=== PATIENT | female | born 1970 | race Caucasian/White ===

== ENCOUNTER 2019-03-17 11:27 | Outpatient (REF) | payer OTHER, SELFPAY ==
[2019-03-17 22:36] LABS: Calculated LDL 96 mg/dL; Cholesterol 177 mg/dL (50-200); HDL Cholesterol 63 mg/dL (40-60); Triglyceride 91 mg/dL (30-150)
== END 2019-03-17 11:47 ==
LOC: NCHCO 11:27
PROVIDERS: PCP Legal Medicine; Visit Provider Internal Medicine
DX: J45.20 Mild intermittent asthma, uncomplicated (principal); F90.0 Attention-deficit hyperactivity disorder, predominantly inattentive type; F34.1 Dysthymic disorder
CPT/HCPCS: 80061

== ENCOUNTER 2019-04-14 01:37 | Outpatient (CLI) | payer OTHER, SELFPAY ==
--- NOTE | 2019-04-14 08:21 | DI.MAMMO_ITS ---
EXAM: MAMMO SCREENING CLINICAL HISTORY: SCREENING, Z12.39 TECHNIQUE: Mammograms were interpreted according to the usual protocol including computer analysis w [employer] CAD system, tomosynthesis and C-view imaging. COMPARISON: 2012 and 2015 FINDINGS: The breasts are composed of scattered areas of fibroglandular density, breast density category B. No suspicious masses or microcalcifications are seen. There has been no significant change when compared with the prior examinations. IMPRESSION: Category 1, negative mammogram. Yearly screening mammography is recommended. BI-RADS Cat 1 - Negative Breast Density - Category B - Scattered areas of fibroglandular density
== END 2019-04-14 01:57 ==
PROVIDERS: PCP Legal Medicine; Visit Provider Internal Medicine
DX: Z12.31 Encounter for screening mammogram for malignant neoplasm of breast (principal)
CPT/HCPCS: 77063; 77067

== ENCOUNTER 2019-08-03 02:25 | Outpatient (CLI) | payer OTHER, SELFPAY ==
--- NOTE | 2019-08-03 12:30 | DI.US_ITS ---
EXAM: US PELVIS AND TRANSVAGINAL CLINICAL HISTORY: IRREGULAR MENSES N92.6. TECHNIQUE: Ultrasound of the pelvic, both abdominal and transvaginal was performed using standard pr otocol. COMPARISON: No exams were available for comparison FINDINGS: KIDNEYS: Kidneys are symmetric in size. No evidence of renal calculi. No evidence of hydronephrosis. No renal mass or cyst identified. UTERUS: Position: Retroverted Size: 5.7 x 3.6 x 4.9 cm Endometrium: 0.4 cm. Normal for patient's menstrual status. Myometrium: Unremarkable. Cervix: Unremarkable. OVARIES: Right: 1.7 x 1.0 x 1.0 cm Cyst or mass: Small follicular cysts. Left: 2.6 x 1.3 x 0.9 cm Cyst or mass: 2.1 x 1.3 x 1.7 cm cyst. There is a thin septation or an adjacent 2nd cyst noted. Thi s 2nd area measures 0.7 cm in diameter. No solid component or blood flow is seen. DOPPLER: Color: Symmetric and uniform flow to both ovaries. No hyperemia. Duplex: Normal ovarian arterial waveforms visualized. CUL-DE-SAC: Free fluid: None. Note is made of a 2.5 x 2.5 x 3.2 cm well-circumscribed hyperechoic mass in the liver. Sonographical ly, this is suggestive of a hemangioma. IMPRESSION: 1. Normal sonographic appearance of the kidneys. 2. Normal-appearing uterus with endometrial stripe within normal limits. 3. 2.1 x 1.3 x 1.7 cm cyst on the left ovary as described above. A 2nd cyst or thin septation is not ed. Please see the above discussion. 4. 2.5 x 2.5 x 3.2 cm well-circumscribed hyperechoic mass in the liver. This is most suggestive of a hemangioma sonographically. A CT scan of the abdomen with the hemangioma protocol may be obtained f or further evaluation.
== END 2019-08-03 02:45 ==
PROVIDERS: PCP Legal Medicine; Visit Provider Obstetrics & Gynecology
DX: N92.6 Irregular menstruation, unspecified (principal); N85.4 Malposition of uterus; N83.01 Follicular cyst of right ovary; N83.292 Other ovarian cyst, left side; K76.89 Other specified diseases of liver
CPT/HCPCS: 76830; 76856

== ENCOUNTER 2020-05-04 10:51 | Outpatient (CLI) | payer OTHER, SELFPAY ==
--- NOTE | 2020-05-04 08:00 | DI.RAD_ITS ---
EXAM: XR KNEE RT 3V AP,LAT,LISANDRA CLINICAL HISTORY: right knee pain. TECHNIQUE: 2D digital imaging was performed. COMPARISON: No exams were available for comparison FINDINGS: BONES: No acute fracture is present. No bony destructive lesion is seen. JOINTS: The knee is normally aligned. No joint effusion is seen. SOFT TISSUE: Normal. IMPRESSION: Unremarkable radiographs of the right knee. DATA REPOSITORY: RADIATION DOSE DELIVERED:
== END 2020-05-04 11:11 ==
PROVIDERS: PCP Internal Medicine; Referring Provider Internal Medicine; Visit Provider Student in an Organized Health Care Education/Training Program
DX: M25.561 Pain in right knee (principal)
CPT/HCPCS: 73562

== ENCOUNTER 2020-07-06 03:25 | Outpatient (CLI) | payer OTHER, SELFPAY ==
--- NOTE | 2020-07-06 08:00 | DI.US_ITS ---
EXAM: US PELVIS TRANSVAGINAL CLINICAL HISTORY: MENOPAUSAL SYMPTOMS,EVAL ENDOMETRIAL STRIPE. TECHNIQUE: Transabdominal and transvaginal pelvic ultrasound was performed using standard protocol. COMPARISON: US US PELVIS TRANSVAGINAL from 08/03/2019 FINDINGS: KIDNEYS: Kidneys are symmetric in size. No evidence of renal calculi. No evidence of hydronephrosis. No renal mass or cyst identified. UTERUS: Position: Retroverted. Size: 6.3 long by 3.8 AP by 4.7 transverse cm Endometrium: 0.7 cm. Normal for patient's menstrual status. Myometrium: No discrete mass is identified. Cervix: Unremarkable. OVARIES: Right: 2.4 x 1.2 x 1.0 cm Cyst or mass: None. Left: 1.4 x 0.9 x 1.0 cm Cyst or mass: None. DOPPLER: Color: Symmetric and uniform flow to both ovaries. No hyperemia. Duplex: Normal ovarian arterial waveforms visualized. CUL-DE-SAC: Free fluid: None. Other: Note is again made of a 2.7 x 2.5 x 2.2 cm well-circumscribed hyperechoic mass in the liver, s onographically delete suggestive of a hepatic hemangioma. IMPRESSION: 1. Normal sonographic appearance of the kidneys. 2. Normal-appearing uterus with endometrial stripe within normal limits. 3. Unremarkable bilateral ovaries. 4. Stable hyperechoic hepatic lesions suggestive of a hepatic hemangioma. DATA REPOSITORY:
== END 2020-07-06 03:45 ==
PROVIDERS: PCP Internal Medicine; Visit Provider Obstetrics & Gynecology
DX: N95.1 Menopausal and female climacteric states (principal)
CPT/HCPCS: 76830; 76856

== ENCOUNTER 2020-07-18 21:56 | Outpatient (REF) | payer OTHER, SELFPAY ==
[2020-07-18 20:56] LABS: TSH (W/Ref FT4) 1.24 uIU/mL (0.36-3.74)
[2020-07-19 17:49] LABS: Estradiol 13 pg/mL (See Note)
[2020-07-19 18:58] LABS: Prolactin 5.1 ng/mL (See Table)
== END 2020-07-18 21:57 | disposition home or self-care (01) ==
LOC: NCHCN 21:56
PROVIDERS: PCP Internal Medicine; Visit Provider Obstetrics & Gynecology
DX: N91.5 Oligomenorrhea, unspecified (principal)
CPT/HCPCS: 82670; 83001; 84146; 84443

== ENCOUNTER 2020-11-16 11:52 | Outpatient (CLI) | payer OTHER, SELFPAY ==
[2020-11-16 11:55] LABS: Source Nasal/Nares
[2020-11-16 20:57] LABS: COVID-19 PCR Negative (Negative)
== END 2020-11-16 11:53 | disposition home or self-care (01) ==
LOC: LBO 11:52
PROVIDERS: PCP Internal Medicine; Visit Provider Surgery
DX: Z20.822 Contact with and (suspected) exposure to COVID-19 (principal)
CPT/HCPCS: 87635

== ENCOUNTER 2020-12-07 11:31 | Outpatient (CLI) | payer OTHER, SELFPAY ==
[2020-12-08 00:45] LABS: COVID-19 RT-PCR UVMMC Result Negative (Negative)
== END 2020-12-07 11:32 | disposition home or self-care (01) ==
PROVIDERS: Nurse Practitioner Family; PCP Internal Medicine; Visit Provider Surgery
DX: Z20.822 Contact with and (suspected) exposure to COVID-19 (principal)
CPT/HCPCS: U0003

== ENCOUNTER 2021-07-18 12:20 | Outpatient (REF) | payer OTHER, SELFPAY ==
--- NOTE | 2021-07-18 11:00 | PAPFT_PTH ---
PATIENT: Carri Logan LOC: [facility]#:[id number] AGE/SX: 50/F ROOM: RE07/18/[address]: Kenton Cortez : 1970 BED: DIS: 07/18/2021 SPEC #: [id number] RECD: 07/18/21 16:37 STATUS: CASA FERNÁNDEZ #: [id number] LAN: 07/18/21 11:[address]: Kenton Cortez DEPT: [facility] Cytology RECD BY: Kalyn Tabor Tissues: 1 - CX/ENDOCX FOR PAP SMEARS Procedures: PAP THIN PREP/UVM Screening HPV DNA PROBE Comments: [id number]
== END 2021-07-18 12:21 | disposition home or self-care (01) ==
LOC: NCHCN 12:20
PROVIDERS: PCP Internal Medicine; Visit Provider Internal Medicine
DX: Z12.4 Encounter for screening for malignant neoplasm of cervix (principal); Z11.51 Encounter for screening for human papillomavirus (HPV); Z01.419 Encounter for gynecological examination (general) (routine) without abnormal findings
CPT/HCPCS: 88142; 87624

== ENCOUNTER 2021-09-06 02:01 | Outpatient (CLI) | payer OTHER, SELFPAY ==
--- NOTE | 2021-09-06 13:00 | DI.MAMMO_ITS ---
Exam(s) MAMMO SCREENING EXAM: MAMMO SCREENING CLINICAL HISTORY: SCREENING, Z12.39 TECHNIQUE: Bilateral full field digital CC and MLO mammographic images were obtained with 3D tomosyn thesis and utilizing computer aided detection (CAD). COMPARISON: Available for comparison. FINDINGS: Masses/Architectural Distortion: There are stable bilateral well-circumscribed nodules. No suspiciou s masses or areas of architectural distortion are present. Microcalcifications: No suspicious pleomorphic-type are seen. Skin Thickening/Nipple Retraction: None. IMPRESSION: 1. No significant interval change with no specific features of malignancy noted. 2. Unless there is more urgent need, screening mammography is recommended, as per [employer] guidelines. BI-RADS Category 2 - Benign Findings Breast Density - Category B - Scattered areas of fibroglandular density Breast density category C or D implies that the patient has dense breast tissue. Dense breast tissue is very common and is not abnormal but dense breast tissue can make it harder to find cancer on a ma mmogram. Also, dense breast tissue may increase their breast cancer risk. This information about the result of the mammogram report was provided to the patient to raise their awareness. Use this report when you speak with the patient about their risks for breast cancer, which includes their family hist ory. At that time, you may recommend for more screening tests (Ultrasound or MRI) as they might be us eful based on their risk. A negative radiographic report should not delay biopsy if a dominant or clinically suspicious mass is present. Up to ten percent of cancers are not identified on mammography. A negative report may reinforce clinical impression. Adenosis and dense breasts may obscure an underlying neoplasm. False positive reports average 6 to 10%. Patient will receive a letter notifying them of these results.
== END 2021-09-06 02:21 ==
PROVIDERS: PCP Internal Medicine; Visit Provider Internal Medicine
DX: Z12.31 Encounter for screening mammogram for malignant neoplasm of breast (principal)
CPT/HCPCS: 77063; 77067

== ENCOUNTER 2022-02-12 13:29 | Outpatient (REF) | payer OTHER, SELFPAY ==
--- NOTE | 2022-02-12 13:40 | SKI_PTH ---
PATIENT: Carri Logan LOC: [facility] U#:[id number] AGE/SX: 51/F ROOM: RE02/12/[address]: THAI Johnson : 1970 BED: DIS: 02/12/2022 SPEC #: [id number] RECD: 02/12/22 17:39 STATUS: CASA REFredercik #: [id number] LAN: 02/12/22 13:[address]: Ana Ng DEPT: Surgical Specimen RECD BY: Kalyn Tabor ENTERED: 02/12/22 17:39 SP TYPE: GWYN OT DR: Kenton Cortez Tissues: 1 - SKIN BIOPSY(SHAVE/PUNCH) Procedures: SKIN LEVEL 4 Comments: [id number]
== END 2022-02-12 13:30 | disposition home or self-care (01) ==
LOC: LBN 13:29
PROVIDERS: PCP Internal Medicine; Visit Provider Physical Therapy Assistant
DX: L82.0 Inflamed seborrheic keratosis (principal)
CPT/HCPCS: 88305

== ENCOUNTER 2022-09-24 15:31 | Outpatient (REF) | payer OTHER, SELFPAY ==
--- NOTE | 2022-09-24 14:30 | ENDOMET_PTH ---
PATIENT: Carri Logan LOC: [facility] U#:[id number] AGE/SX: 51/F ROOM: RE09/24/[address]: Nithya Cornelius DO : 1970 BED: DIS: 09/24/2022 SPEC #: [id number] RECD: 09/24/22 16:51 STATUS: CASA REQ #: [id number] LAN: 09/24/22 14:[address]: Nithya Cornelius DEPT: Surgical Specimen RECD BY: Kalyn Tabor ENTERED: 09/24/22 16:51 SP TYPE: Endomet OTHR DR: Kenton Cortez Tissues: 1 - ENDOMETRIUM BX/FOUZIA Procedures: GROSS AND MICRO LEVEL 4 Comments: [id number]
== END 2022-09-24 15:32 | disposition home or self-care (01) ==
LOC: LBN 15:31
PROVIDERS: PCP Internal Medicine; Visit Provider Obstetrics & Gynecology
DX: N85.8 Other specified noninflammatory disorders of uterus (principal); N95.0 Postmenopausal bleeding
CPT/HCPCS: 88305

== ENCOUNTER 2022-10-13 13:38 | Outpatient (CLI) | payer OTHER, SELFPAY ==
--- NOTE | 2022-10-13 10:00 | DI.MRI_ITS ---
Exam(s) MR UPPER JOINT LT WO EXAM: MR UPPER JOINT LT WO CLINICAL HISTORY: persistent weakness,pain, traumatic tear lt rotator cuff, s46.012a TECHNIQUE: Multiplanar multisequence MRI of the shoulder was performed. COMPARISON: There are no prior shoulder images available for comparison. FINDINGS: MARROW:There is no evidence of fracture, Hill-Sachs deformity, bony Bankart lesion nor ominous osseou s lesions. ROTATOR CUFF MECHANISM: AC JOINT/ACROMIUM: Minimal if any significant degenerative changes in the AC joint. No downgoing ost eophytes evident. No evidence of enthesophyte within the coracoacromial ligament.. There is no evidence of os acromiale. Supraspinatus: Intact. No evidence of tear nor muscle atrophy. Infraspinatus: Intact. No evidence of tear nor muscle atrophy. Teres Minor: Intact. No evidence of tear nor muscle atrophy. Subscapularis/anterior cuff: Intact. No abnormal signal at the level of the multipennate insertional fibers. No significant tear nor atrophy. BICEPS TENDON: Not displaced from the intertubercular groove. No evidence of tear nor tenosynovitis. LABRUM: Superior labrum appears intact. Posterior labrum appears intact. There is mild increased si gnal in the anterior labrum but without a distinct obvious tear. Inferior labrum intact. The inferi or glenohumeral ligament appears somewhat thin-poorly defined. There is mild increased signal in thi s region. Is no abnormal intraosseous signal in the inferior osseous glenoid and humeral neck region . GLENOHUMERAL JOINT: There is some increased fluid in this anterior sub coracoid recess with synovial thickening at this level but no loose body. There is no prominent glenohumeral joint effusion. No d egenerative subarticular cysts. No osteophytes. IMPRESSION: 1. There is no evidence of significant rotator cuff tear. Four muscular components of the rotator cu ff mechanism appear intact with no evidence of rotator cuff tendon tears, muscular tears, nor muscula r atrophy 2. Subtle labral findings which are doubtful for true tear. No evidence of biceps tendon tear nor di splacement. 3. The inferior glenohumeral ligament appears poorly defined and with slightly increased signal. The re does not appear to be evidence of an obvious prior Bankart-type injury. No fluid in the inferior recess. Mild increased fluid in the medial recess with some synovial thickening at this level. Ther e is, however, no true glenohumeral joint effusion. 4. There are no obvious degenerative changes in the glenohumeral and AC joints. DATA REPOSITORY:
== END 2022-10-13 13:58 ==
PROVIDERS: PCP Internal Medicine; Visit Provider Student in an Organized Health Care Education/Training Program
DX: S46.012A Strain of muscle(s) and tendon(s) of the rotator cuff of left shoulder, initial encounter (principal)
CPT/HCPCS: 73221

== ENCOUNTER 2022-10-16 00:59 | Outpatient (CLI) | payer OTHER, SELFPAY ==
--- NOTE | 2022-10-16 08:45 | DI.MAMMO_ITS ---
Exam(s) MAMMO SCREENING EXAM: MAMMO SCREENING CLINICAL HISTORY: screening,z12.39 TECHNIQUE: Bilateral full field digital CC and MLO mammographic images were obtained with 3D tomosyn thesis and utilizing computer aided detection (CAD). COMPARISON: Available for comparison. FINDINGS: Masses/Architectural Distortion: None seen. Microcalcifications: No suspicious pleomorphic-type are seen. Skin Thickening/Nipple Retraction: None. IMPRESSION: 1. No significant interval change with no specific features of malignancy noted. 2. Unless there is more urgent need, screening mammography is recommended, as per [employer] guidelines. BI-RADS Category 1 - Negative Breast Density - Category B - Scattered areas of fibroglandular density Breast density category C or D implies that the patient has dense breast tissue. Dense breast tissue is very common and is not abnormal but dense breast tissue can make it harder to find cancer on a ma mmogram. Also, dense breast tissue may increase their breast cancer risk. This information about the result of the mammogram report was provided to the patient to raise their awareness. Use this report when you speak with the patient about their risks for breast cancer, which includes their family hist ory. At that time, you may recommend for more screening tests (Ultrasound or MRI) as they might be us eful based on their risk. A negative radiographic report should not delay biopsy if a dominant or clinically suspicious mass is present. Up to ten percent of cancers are not identified on mammography. A negative report may reinforce clinical impression. Adenosis and dense breasts may obscure an underlying neoplasm. False positive reports average 6 to 10%. Patient will receive a letter notifying them of these results.
== END 2022-10-16 01:19 ==
LOC: DI 00:59
PROVIDERS: PCP Internal Medicine; Visit Provider Obstetrics & Gynecology
DX: Z12.31 Encounter for screening mammogram for malignant neoplasm of breast (principal)
CPT/HCPCS: 77063; 77067

== ENCOUNTER 2022-12-05 06:11 | Day surgery (SDC) | payer OTHER, SELFPAY ==
--- NOTE | 2022-12-04 20:18 | COLE_ITS ---
Date of service: 12/05/22 Time of Service: 08:06 Colonoscopy Report Date of procedure: 12/05/22 Pre-op diagnosis general: CRC screening Post-op diagnosis procedure note: other (normal) Surgeon: Mary Ann Hannah Anesthesia Type: General:No Airway Estimated blood loss (mL): 0 Pathology: none sent Complications: None Disposition: same day Prep: Miralax/Dulcolax Retraction Time: 9 Procedure Description: After informed consent was obtained the patient was taken to the procedure room and placed in a left decubitous position. Monitors were applied and a time out was done. The patients name, date of , procedure, allergies to medications and metal in their body was reviewed. The patient was then sedated. Once sedated and comfortable a rectal exam was done. External exam was normal. Internal exam revealed a normal sphincter tone and no palpable masses. The scope was then introduced and retrofelexed. No internal hemorrhoids were identified. There are few small hemorrhoidal tags. the scope was then advance d to the cecum No difficulty. The TI and appendiceal orifice were identified. The prep was BBPS 3 in all segments for total of 9. The scope was then slowly retracted over 9 minutes back into the rectum. There are no polyps, AVMs, or diverticula visualized. Mucosa is pink and healthy with a normal vascular pattern the scope was removed and the patient was woken up and taken back to Same day surgery in stable condition. The patient tolerated the procedure well and there were no immediate complications. Follow up: The patient should follow up in 10 years unless they develop changes in bowel habits or other new gastrointestinal complaints.
--- NOTE | 2022-12-04 20:19 | PDOC.DSDIS_ITS ---
Date of service: 12/05/22 Time of Service: 08:09 Discharge Plan Disposition Patient Disposition: Home Condition: Good Discharge Details Reason For Visit: CRC screening Attending Provider: Mary Ann Hannah Primary Care Provider: Kenton Cortez Home Meds and New Rx's Prescriptions: No Action calcium carbonate [Calcium 600] 600 mg calcium (1,500 mg) tablet 600 mg PO DAILY estradiol [Estrace] 1 mg tablet 1 mg PO DAILY Qty: 90 3RF progesterone micronized [Prometrium] 100 mg capsule 100 mg PO DAILY 360 Days Qty: 90 3RF cetirizine [Zyrtec] 10 MG tablet 10 mg PO DAILY Rx Instructions: BID for incr allergies fluticasone propion-salmeterol [Advair Diskus] 1 EACH blister with device 1 - 2 puff Inhalation PRN PRN Patient Comments: 03/30/15- Pt states she has not used for months. KL Rx Instructions: seasonally only fluticasone propionate 16 GM spray,suspension 2 spry NS DAILY PRN Patient Comments: 03/30/15- Pt states she has not used for months. KL sertraline [Zoloft] 50 mg tablet 50 mg PO DAILY Qty: 30 0RF albuterol sulfate [Ventolin HFA] 90 mcg/actuation HFA aerosol inhaler 1 - 2 puff Inhalation Q6H PRN Qty: 1 5RF lorazepam [Ativan] 1 mg tablet 1 mg PO DAILY PRN (Reason: anxiety) Qty: 30 1RF Discharge Instructions Additional Instructions: DSU Colonoscopy Post- Op Instructions Instructions for Everyone who is given Anesthesia: For your safety, please do the following for the next twenty-four (24) hours: *Do Not operate a motor vehicle (car, truck, motorcycle, etc.) *Do Not drink alcoholic beverages or use any recreational drugs for the first 24 hours or while taking pain medications. The medications in your body may have a reaction that can be dangerous. *Do Not make any important decisions or sign any important papers. Findings: Normal Follow up: Repeat in 10 yrs time. Of course, you should continue to have a yearly physical exam including a rectal exam. If you should ever notice any pain or difficulty having a bowel movement, blood in the stool, unexplained weight loss, or change in your bowel habits, please contact your health provider 1. No lifting over 20 pounds or strenuous activity for the first 24 hours after your procedure. After 24 hours there are no restrictions on your activity but you may feel fatigued for a few days. 2. After you arrive home you may have a light meal and return to your normal diet as you can tolerate it without feeling sick to your stomach. 3. You may have a bloated, gaseous feeling in your belly (abdomen) after a colonoscopy. Passing gas and belching will help. Walking or lying down on your left side with your knees flexed may relieve the discomfort. Call the office at [phone] (Office) or [phone] (Hospital) right away if you notice any of the following: a.Vomiting of blood or ?coffee ground stools?. b.Rectal bleeding 1Tbsp, blood clots or continuous bleeding. c.Severe belly (abdominal) pain. d.A hard distended belly (abdomen) and an inability to pass gas. 4. Please don?t expect to have a normal BM (bowel movement) for 2-3 days after your procedure. 5. If there are questions regarding the findings of your procedure, please contact your doctor 6. If you are unable to contact your doctor with a problem, contact the hospital at [phone]. 7. Continue all your regular medications unless directed otherwise. I understand the above instructions and have no questions. Signature of Patient or Adult Escort Name of Responsible Adult Escort Signature of Nurse Date/Time Activity:: see above Diet:: see above Discharge Orders Discharge Orders: Discharge Order (Routine); Ordered 12/05/22 Ordered By: Mary Ann Hannah DS: Diagnosis Discharge Diagnosis (1) Screening for malignant neoplasm of colon performed: Status: Acute Asessment and Plan: The patient is seen and examined after their colonoscopy.? The patient has been able to pass gas.? They are not having abdominal pain.? They have been able to tolerate liquids and a snack.? They do not have any nausea or vomiting.? They are not having any chest pain or shortness of breath.??? They are not having any rectal bleeding. Their vital signs have been stable-see nursing notes. We discussed findings during their colonoscopy, and any biopsies that were done/polyps that were removed. The patient will be sent a letter with any biopsy results, and when to repeat the colonoscopy.-see discharge instructions. Patient was given explicit instructions to follow-up regarding colonoscopy-refer to discharge instructions.? We reviewed resumption of medications. Patient verbalized understanding and discharged in stable and satisfactory condition- See nursing notes.
--- NOTE | 2022-12-04 21:07 | W.PM.HP.N ---
Date of service: 12/05/22 Time of Service: 07:27 Assessment and Plan Assessment and plan (1) Colon cancer screening: Status: Acute Assessment and plan: Plan: Colonoscopy w/ general & natural airway. Informed consent is obtained for the procedural (explained in simple layman's terms that?the pt and/or family could understand) explaining risks vs benefits and alternatives to the procedure and consequences if we do not do the procedure and need/rational for the procedure. Risks include but are not limited to: bleeding, infection, perforation of colon.? This would necessitate emergency surgery to repair the damage w/ possible ostomy; and other associated complications w/ the required surgery. ? Also complications of anesthesia including aspiration, SD/CVA/, inability to complete the procedure. I discussed with the?patient would they could expect during the procedure, post procedure and recovery time and risks.? The patient understands that they need to have a ride home after the procedure.? The patient was given all this information in writing and expressed understanding. If there are any questions or concerns please feel free to contact our office.? Generally Colonoscopy does not require antibiotics prophylaxis, History of Present Illness Narrative: Today: Patient is here today for colonoscopy for screening.??? They completed a bowel prep with just a clear yellow residual effluent.? They not having any chest pain or shortness of breath, currently.? They are not experiencing any fever or chills.? They deny any productive cough or upper respiratory tract infection signs or symptoms.? They are not having abdominal pain, or nausea and vomiting.? They have not had any changes in medications, past medical history or past surgical history since previously being seen in the office. They have not had any accidents or have been in the ER since the clinic pre-operative evaluation. ??I reviewed the procedure with the patient today, including risks and benefits of the procedure, and what they could expect at home for recovery.? All questions are answered to the patient?s satisfaction today, and they are stable to proceed with the proposed procedure. Clinic Visit 11/03/22 Pt seen at the request of PCP regarding colon cancer screening. Pt has never had colon cancer screening before.? They denies problems with constipation or diarrhea.? They deny any pain or difficulty with bowel movements, or rectal bleeding.? There is no family history of any colon cancer.? Pt has been tyring to loose wt.? ? Their appetite is good.? ?They deny heart, or kidney problems.? She does have some intermittent asthma- she uses albuterol MDI prn.? They are not having heartburn or indigestion. They have not had any prior colo-rectal surgery.? The patient? has not had a prior JOSE.? They deny any problems with anesthesia in the past. Anesthesia: general (without airway) Previous surgical intolerances: No Previous surgical complications: No Pulmonary risk factors: Planned procedure: Yes Sleep apnea risks: No COPD/Asthma/Smoker: asthma. Can climb one flight of stairs (12-13 steps) in less than 30 seconds without stopping and without symptoms: Yes The surgery proposed for this patient is: low risk Active cardiac conditions: none Active risk factors: none ASA (acetylsalicylic acid): not used Beta blockers: not used Kidneys: no concerns DM:no ?PShx D&C ulnar transposition Review of Systems All systems reviewed & are unremarkable except as noted in HPI and below PFSH All Active Problems Screening for malignant neoplasm of colon performed (Acute) Menopausal flushing (Acute) Oligomenorrhea (Acute) Encounter for screening for other viral diseases (Acute) Internal derangement of right knee (Acute) Digital mucous cyst of finger of left hand (Acute) Menopausal symptom (Acute) Encounter for screening laboratory testing for COVID-19 virus in asymptomatic patient (Acute) Shoulder injury (Acute) Symptomatic menopausal or female climacteric states (Acute) Post-menopausal bleeding (Acute) Colon cancer screening (Acute) Stiffness of left shoulder joint (Acute) Medical History ADHD (attention deficit hyperactivity disorder) Asthma Surgical History H/O dilation and curettage H/O wisdom tooth extraction R tennis elbow repair (03/30/15) Dr. DEMARCO Social History Smoking/Tobacco Use Status: Never Smoking risk assessment performed?: Yes Alcohol Intake: current Alcohol Intake frequency: a few times a week Alcohol type: wine Drug use: Never Substance use type: does not use Current gender identity: female Do you feel safe at home: Yes Do you feel safe in your relationship?: Yes Female Reproductive History Menstrual Menopause type: natural Date of menopause: 06/15/17 Meds Allergies and Home Medications Allergies Allergy/AdvReac Type Severity Reaction Status Date / Time black cohosh Allergy Severe suicidal Verified 12/05/22 06:25 ideations lactose AdvReac GI Verified 12/05/22 06:25 tree allergies Allergy asthma Uncoded 12/05/22 06:25 Home Medications Medication Instructions Recorded Confirmed Type cetirizine 10 mg tablet (Zyrtec) 10 mg PO DAILY 01/19/14 12/05/22 History fluticasone 500 mcg-salmeterol 50 1 - 2 puff inhalation PRN PRN 01/19/14 12/05/22 History mcg/dose blistr powdr for inhalation (Advair Diskus) fluticasone propionate 50 2 spry NS DAILY PRN 01/19/14 12/05/22 History mcg/actuation nasal spray,suspension sertraline 50 mg tablet (Zoloft) 50 mg PO DAILY #30 tabs 02/09/21 12/05/22 Rx albuterol sulfate 90 mcg/actuation 1 - 2 puff inhalation Q6H PRN ##1 07/05/21 11/26/22 Rx aerosol inhaler (Ventolin HFA) estradiol 1 mg tablet (Estrace) 1 mg PO DAILY #90 tabs 03/13/22 12/05/22 Rx progesterone micronized 100 mg 100 mg PO DAILY 12 months #90 caps 03/13/22 12/05/22 Rx capsule (Prometrium) lorazepam 1 mg tablet (Ativan) 1 mg PO DAILY PRN anxiety #30 tabs 05/25/22 12/05/22 Rx calcium carbonate 600 mg calcium 600 mg PO DAILY 09/24/22 12/05/22 History (1,500 mg) tablet (Calcium) Exam Narrative Exam Narrative: PHYSICAL EXAM GENERAL APPEARANCE: Alert, healthy appearance, oriented, x 3,? in no acute distress HYDRATION: Well hydrated HEAD, EYES, EARS, NECK, THROAT: Head is normocephalic, pupils equal, round, reactive to light and accommodation, ocular movement intact, sclera clear and no jaundice. ?Dentition intact. LUNGS: normal respiration/normal chest excursion. ?Clear to auscultation bilaterally. ?No wheeze. ?HEART: Regular rate and rhythm. no murmurs .? ABDOMEN: soft and non-tender to palpation.? Normal bowel sounds.? Time Spent Time spent with Patient: <40 minutes Time was spent: preparing to see the patient(eg.review tests), obtaining and/or reviewing separately otained hiistory, ordering medications,tests, procedures, referring, communicating with other health post acute care nurse practitioner, indepentently interpreting results, counseling the patient and care coordination
[2022-12-05 06:28] VITALS: BP 129/90; PULSE 70; RESP 17; TEMP 36.4; O2SAT 99
[2022-12-05] MEDS: Lactated Ringers 1,000 ML 80 ML IV (06:40)
--- NOTE | 2022-12-05 07:11 | ANES.PREOP_ITS ---
General Info Date of Service Date Performed: 12/05/22 Height: 5 ft 8.11 in Weight: 84.1 kg Body Mass Index (BMI): 28.0 Surgical Procedure: Operation Date: 12/05/22 07:35 Proposed Procedure Side Surgeon p Colonoscopy Mary Ann Hannah, Actual Procedure Side Surgeon p Colonoscopy Mary Ann Hannah, Pre-Op Diagnosis Post-Op Diagnosis CRC screening Meds Allergies and Home Medications Allergies Allergy/AdvReac Type Severity Reaction Status Date / Time black cohosh Allergy Severe suicidal Verified 12/05/22 06:25 ideations lactose AdvReac GI Verified 12/05/22 06:25 tree allergies Allergy asthma Uncoded 12/05/22 06:25 Home Medication Medication Instructions Recorded cetirizine 10 mg tablet (Zyrtec) 10 mg PO DAILY 01/19/14 fluticasone 500 mcg-salmeterol 50 1 - 2 puff inhalation PRN PRN 01/19/14 mcg/dose blistr powdr for inhalation (Advair Diskus) fluticasone propionate 50 2 spry NS DAILY PRN 01/19/14 mcg/actuation nasal spray,suspension sertraline 50 mg tablet (Zoloft) 50 mg PO DAILY #30 tabs 02/09/21 albuterol sulfate 90 mcg/actuation 1 - 2 puff inhalation Q6H PRN ##1 07/05/21 aerosol inhaler (Ventolin HFA) estradiol 1 mg tablet (Estrace) 1 mg PO DAILY #90 tabs 03/13/22 progesterone micronized 100 mg 100 mg PO DAILY 12 months #90 caps 03/13/22 capsule (Prometrium) lorazepam 1 mg tablet (Ativan) 1 mg PO DAILY PRN anxiety #30 tabs 05/25/22 calcium carbonate 600 mg calcium 600 mg PO DAILY 09/24/22 (1,500 mg) tablet (Calcium) Current Visit Medications: Current Medications Generic Name Dose Route Start Last Admin Trade Name Freq PRN Reason Stop Dose Admin Hyoscyamine Sulfate 0.125 mg 12/05/22 08:16 Hyoscyamine 0.125 Mg Sl/Oral/Chew SL 01/04/23 08:15 DIRECTED PRN Ringer's Solution 1,000 mls @ 80 mls/hr 12/05/22 06:00 12/05/22 06:40 IV 12/05/22 23:59 80 mls/hr INFUSION KALE Administration IV Miscellaneous Supplies 1 each 12/05/22 06:00 Iv Access IV 12/05/22 23:59 DIRECTED KALE Ondansetron HCl 4 mg 12/05/22 08:16 Ondansetron 4 Mg/2 Ml Vial IVP 01/04/23 08:15 Q4H PRN PRN Nausea / Vomiting Sodium Chloride 0 ml 12/05/22 06:00 Normal Saline Flush 10 Ml Syr IV 12/05/22 23:59 PRN PRN Sodium Chloride 0 ml 12/05/22 06:00 Normal Saline 10 Ml Vial IJ 12/05/22 23:59 DIRECTED PRN Sterile Water 0 ml 12/05/22 06:00 Water,Injection,Sterile 10 Ml Vial IJ 12/05/22 23:59 DIRECTED PRN PFSH Active Problems Active Problems: Problem Status Onset Code Screening for malignant neoplasm of colon performed Z12.11 Menopausal flushing N95.1 Oligomenorrhea N91.5 Encounter for screening for other viral diseases Z11.59 Internal derangement of right knee M23.91 Digital mucous cyst of finger of left hand M67.442 Menopausal symptom N95.1 Encounter for screening laboratory testing for COVID-19 virus in asymptomatic patient Z20.822 Shoulder injury S49.90XA Symptomatic menopausal or female climacteric states N95.1 Post-menopausal bleeding N95.0 Colon cancer screening Z12.11 Stiffness of left shoulder joint M25.612 Medical History Medical History ADHD (attention deficit hyperactivity disorder) Asthma Surgical History Surgical History H/O dilation and curettage H/O wisdom tooth extraction R tennis elbow repair (03/30/15) Dr. DEMARCO Tobacco Smoking/Tobacco Use Status: Never Alcohol Alcohol Intake: current Alcohol intake frequency: a few times a week Alcohol type: wine Substance Use Substance use: Never Substance use type: does not use Vital Signs and Lab Results Vital Signs Most Recent Vital Signs in EMR: Most Recent Vital Signs Temp Pulse Resp BP Pulse Ox 36.4 C L 70 17 129/90 99 12/05/22 06:28 12/05/22 06:28 12/05/22 06:28 12/05/22 06:28 12/05/22 06:28 Lab Results Blood Type / Crossmatch: No Data to Display Complete Blood Count: No Data to Display Complete Metabolic Panel: No Data to Display Liver Function Panel: No Data to Display Coagulation Panel: No Data to Display Cardiac Panel: No Data to Display Arterial Blood Gas: No Data to Display Venous Blood Gas: No Data to Display Pancreas Panel: No Data to Display Thyroid Panel: No Data to Display Infectious Disease: 2 No Data to Display Blood Cultures: No Data to Display Toxicology Panel: No Data to Display Panel: No Data to Display Anesthesia Assessment and Plan Anesthesia History Personal History: No History of Anesthesia Complications Family History: No Family History of Anesthesia Complications Exercise Tolerance Exercise Tolerance: Metabolic Equivalents>4 Pertinent Negatives Pertinent Negatives: No Symptoms of GERD Cardiac & Pulmonary Exam Cardiac Exam: Normal S1/S2 Heart Sounds Pulmonary Exam: Clear Bilateral Breath Sounds Implantable Cardiac Device Does patient have a Pacemaker or an ICD?: No Airway Exam Known Difficult Airway: No Mallampati Class: 2 Mouth Opening: Normal (> 3cm) Thyromental Distance: Greater than 3 cm Neck Range of Motion: Full ROM Neck Circumference: Normal Teeth Condition: Normal Dentition ASA Classification ASA Score: ASA 2 Emergency Case?: No NPO Status NPO Status: NPO Clears >2 hours, Solids >8 hours Status Status: Not Relevant due to Medical History Anesthesia Plan Resuscitation Status: Full Code Anesthesia Technique: General Anesthesia Airway Planned: Natural Airway Monitors Used: Standard Monitors
[2022-12-05 07:15] VITALS: BMI 28.0
[2022-12-05 08:03] VITALS: BP 85/67; PULSE 55; RESP 16; TEMP 36; O2SAT 96
--- NOTE | 2022-12-05 08:08 | W.ANESPOSTOP ---
Postoperative Evaluation Date, Time and Location Date Performed: 12/05/22 Time Performed: 08:08 Patient Location: Day Surgery Unit Vital Signs Most Recent Imported Vital Signs: Most Recent Vital Signs Temp Pulse Resp BP Pulse Ox 36.4 C L 70 17 129/90 99 12/05/22 06:28 12/05/22 06:28 12/05/22 06:28 12/05/22 06:28 12/05/22 06:28 Pain Score Most Recent Pain Score: Most Recent Pain Score Pain Level 0 12/05/22 06:28 Assessment Mental Status: Arousable with meaningful communication Airway and Respiratory Function: Patent airway with normal (patient baseline) respiratory exam Cardiovascular Function: Hemodynamically Stable Hydration Status: Adequately Hydrated Nausea & Vomiting: No Nausea or Vomiting Pain: Pt. Denies Any Pain Peripheral Nerve Block: Patient did not receive a nerve block
[2022-12-05 08:31] VITALS: BP 101/69; PULSE 62; RESP 16; TEMP 36.1; O2SAT 99
== END 2022-12-05 10:00 | disposition home or self-care (01) ==
PROVIDERS: PCP Internal Medicine; Visit Provider Surgery
PROC: 0DJD8ZZ Inspection of Lower Intestinal Tract, Via Natural or Artificial Opening Endoscopic (ICD-10-PCS; CPT 45378; principal; 2022-12-05 07:30)
DX: Z12.11 Encounter for screening for malignant neoplasm of colon (principal); J45.909 Unspecified asthma, uncomplicated
CPT/HCPCS: 45378; J2001

== ENCOUNTER → 2023-03-24 12:36 | Outpatient (CLI) | payer OTHER, SELFPAY ==
--- NOTE | 2023-03-24 12:23 | DI.RAD_ITS ---
Exam(s) XR CHEST 2V PA LATERAL EXAM: XR CHEST 2V PA LATERAL CLINICAL HISTORY: past exposure to tb,+ quantiferon tb gol test, r76.12 TECHNIQUE: 2D digital imaging was performed of the chest. Two images were obtained. PA and lateral views were obtained. COMPARISON: No exams were available for comparison FINDINGS: MEDIASTINUM: Normal. HEART: Normal. PULMONARY VASCULATURE: Normal. LUNGS: Clear. PLEURAL SPACE: No pleural effusion or pneumothorax. BONE:Within normal limits for the patient's age. OTHER FINDINGS:Normal. IMPRESSION: No acute pulmonary findings. DATA REPOSITORY: RADIATION DOSE DELIVERED:
== END ==
PROVIDERS: PCP Internal Medicine; Visit Provider Nurse Practitioner Family
DX: R76.12 Nonspecific reaction to cell mediated immunity measurement of gamma interferon antigen response without active tuberculosis (principal)
CPT/HCPCS: 71046